=== PATIENT | male | born 1980 | race Caucasian/White ===

== ENCOUNTER 2016-11-14 20:54 | Emergency (ER) | payer MEDICAID ==
[~2016-11-14] VITALS: Ht 175.3 cm; Wt 97.5 kg
[~2016-11-14 20:54] MED LIST: ASPI81TA2 PO; LOP600 PO
[2016-11-14 20:55] VITALS: BP 155/92; PULSE 91; RESP 20; TEMP 98.6; O2SAT 96
--- NOTE | 2016-11-14 20:55 | NUR ---
pt to waiting room awaiting available bed. stable.
--- NOTE | 2016-11-14 22:55 | NUR ---
Patient placed to bed 4. Report given to Tequila DUQUE
--- NOTE | 2016-11-14 22:59 | NUR ---
Patient to ER C/O left upper abdominal pain 02/20. Patient states that in the last 3-4 days he has been drinking too much, had nausea & vomiting and last time the vomiting "looked like big brown curds" AAOx4, unlabored breathing, no signs of acute distress.
--- NOTE | 2016-11-14 23:14 | NUR ---
ER MD Em at bedside for evaluation
--- NOTE | 2016-11-14 23:20 | NUR ---
# 20 gauge angiocath placed to LEFT AC. Use of asceptic technique. Opsite placed over site. Blood return noted. Flushed with 10 cc of normal saline. No evidence of infiltration noted. Patient tolerated well.
[2016-11-14] MEDS ORDERED: NACL 0.9% 1,000 ML IV ONE (23:25)
[2016-11-14] MEDS ORDERED: PANTOPRAZOLE SODIUM 40 MG/VIAL (PROTONIX) IVP ONE (23:30)
[2016-11-14] MEDS ORDERED: ONDANSETRON HCL 4 MG/2 ML VIAL IVP ONE (23:30)
[2016-11-14 23:53] LABS: BASOPHILS # (AUTO) 0.1 K/uL (0.0-0.2); EOSINOPHILS # (AUTO) 0.2 K/uL (0.0-0.4); EOSINOPHILS % (AUTO) 2.6 % (0.0-4.0); HEMATOCRIT 49.7 % (36-54); HEMOGLOBIN 16.6 g/dL (14.0-18.0); LYMPHOCYTES # (AUTO) 2.5 K/uL (1.0-5.5); LYMPHOCYTES % (AUTO) 28.6 % (20.5-51.5); MEAN CORPUSCULAR HEMOGLOBIN 33 pg (27-31); MEAN CORPUSCULAR HGB CONC 33 % (32-36); MEAN CORPUSCULAR VOLUME 99 fL (79.0-98.0); MONOCYTES # (AUTO) 0.5 K/uL (0.0-1.0); MONOCYTES % (AUTO) 5.6 % (1.7-9.3); NEUTROPHILS # (AUTO) 5.5 K/uL (1.8-7.7); NEUTROPHILS % (AUTO) 62.2 % (40.0-70.0); PLATELET COUNT (AUTO) 297 K/uL (130-430); RED BLOOD CELL COUNT(AUTO) 5.03 MIL/uL (4.2-6.2); RED CELL DISTRIBUTION WIDTH 13.1 % (9.0-15.0); WHITE BLOOD COUNT (AUTO) 8.8 K/uL (4.8-10.8)
[2016-11-15 00:08] LABS: CALCIUM 8.7 mg/dL (8.4-11.0); CREATININE 0.94 mg/dL (0.55-1.30); POTASSIUM 3.2 mmol/L (3.5-5.1)
[2016-11-15 00:12] LABS: BILIRUBIN,URINE NEGATIVE (NEGATIVE); BLOOD, URINE NEGATIVE (NEGATIVE); CLARITY/URINE CLEAR (CLEAR); COLOR,URINE YELLOW (YELLOW); GLUCOSE,URINE NEGATIVE (NEGATIVE); KETONES,URINE 1+ (NEGATIVE); LEUKOCYTE ESTERASE ,URINE NEGATIVE (NEGATIVE); NITRITE, URINE NEGATIVE (NEGATIVE); PH,URINE 6.5 (5.0-8.0); PROTEIN URINE NEGATIVE (NEGATIVE); UROBILINOGEN,URINE 0.2 (0.2-1.0)
[2016-11-15 00:12] LABS: TOTAL BILIRUBIN 0.5 mg/dL (0.0-1.0); TOTAL PROTEIN, SERUM 7.6 g/dL (6.4-8.3)
[2016-11-15 00:26] LABS: PROTHROMBIN TIME 11.1 SECS (9.5-12.5)
[2016-11-15 00:30] LABS: BARBITURATE, URINE NEGATIVE (NEG <=200); BENZODIAZEPINE, URINE NEGATIVE (NEG <=150); CANNABINOID, URINE NEGATIVE (NEG <=50); COCAINE, URINE NEGATIVE (NEG <=150); METHAMPHETAMINES SCREEN,URINE NEGATIVE (NEG <=500); OPIATE, URINE NEGATIVE (NEG <=100); PHENCYCLIDINE SCREEN,URINE NEGATIVE (NEG <=25); UR TRICYCLIC ANTIDEPRESSANTS NEGATIVE (NEG <=300); URINE AMPHETAMINE NEGATIVE (NEG <=500); URINE METHADONE NEGATIVE (NEG <=200); URINE OXYCODONE SCREEN NEGATIVE (NEG <=100); URINE PROPOXYPHENE SCREEN NEGATIVE (NEG <=300)
--- NOTE | 2016-11-15 00:46 | NUR ---
Patient calm in bed, no signs of acute distress.
--- NOTE | 2016-11-15 01:55 | NUR ---
ER MD Banksek at bedside discussing plan of care.
[2016-11-15] MEDS ORDERED: POTASSIUM CHLORIDE 20 MEQ TAB.PRT.SR PO ONE (02:15)
[2016-11-15 02:41] VITALS: BP 130/76; PULSE 79; RESP 17; TEMP 98.4; O2SAT 98
--- NOTE | 2016-11-15 02:41 | NUR ---
Patient given written and verbal discharge instructions and verbalizes understanding. ER MD mE discussed with patient the results and treatment provided. Patient in stable condition. ID arm band removed. IV catheter removed intact and dressing applied, no active bleeding. Rx of protonix & zofran given. Patient educated on pain management and to follow up with PMD. Pain Scale 0/10. Opportunity for questions provided and answered.
== END 2016-11-15 02:41 | disposition home or self-care (01) ==
LOC: SED 20:54
DX: K92.0 Hematemesis (principal); R10.9 Unspecified abdominal pain; I10 Essential (primary) hypertension
CPT/HCPCS: 36415; 71010; 80053; 80307; 81003; 85025; 85610; 85730; 86886; 86900; 86901; 93005; 96361; 96374; 96375; 99285; C9113; G0482; J2405; J7030